=== PATIENT | female | born 1995 | race Caucasian/White ===

== ENCOUNTER 2022-08-11 15:05 | Emergency (ER) | payer OTHER, SELFPAY ==
[2022-08-11 15:21] VITALS: BP 109/67; PULSE 71; RESP 16; TEMP 37.1; O2SAT 100
[2022-08-11 15:23] VITALS: BP 109/67; PULSE 71; RESP 16; TEMP 37.1; O2SAT 100
--- NOTE | 2022-08-11 16:04 | ED.EAR ---
HPI - Ear Problem General Chief complaint: Ear Stated complaint: Left Ear Irritation Time Seen by Provider: 08/11/22 16:04 Source: patient Mode of arrival: ambulatory Limitations: no limitations History of Present Illness HPI Narrative: 27-year-old female presenting for complaint of left ear pain over the last 3 days. She endorses yellow drainage, decreased hearing, and dizziness at times. She endorses she has had this in the past and has not yet been able to establish with the ENT. She currently denies sinus congestion or drainage, cough, fevers or chills. She has taken Tylenol and ibuprofen for symptoms. MD Complaint: ear pain Related Data Home Medications Medication Instructions Recorded Confirmed norethindrone 1 mg-ethinyl 1 tablet PO DAILY 08/11/22 08/11/22 estradiol 20 mcg (21)-iron 75 mg (7) tablet (10/05 (28)) Allergies Allergy/AdvReac Type Severity Reaction Status Date / Time No Known Allergies Allergy Unknown Verified 08/11/22 16:06 Review of Systems Review of Systems: CONSTITUTIONAL: Denies malaise, chills, or fever. EYES: Denies visual changes, redness, or discharge. ENT: Denies rhinorrhea, congestion, sinus pain, and sore throat. Reports ear pain CARDIOVASCULAR: Denies chest pain, palpitations, or edema. RESPIRATORY: Denies cough or dyspnea. GASTROINTESTINAL: Denies abdominal pain, nausea, vomiting, diarrhea SKIN: Denies rash or itching. MUSCULOSKELETAL: Denies myalgia. NEUROLOGIC: Denies headache. All systems reviewed & are unremarkable except as noted in HPI and below PMFSH Comments At time of signature, agree with nursing past medical, surgical, social and family history. There is no relevant family history pertinent to the presenting complaint Exam Narrative: GENERAL: Well-appearing, well-nourished, and in no acute distress. HEAD: Normocephalic EYES: PERRLA, conjunctivae clear ENT: Nares clear. Mucous membranes moist. Right TM pearly zhu with dull light reflex; Approx 50% Left TM visible appears TM red with purulent effusion, tender canal without drainage; left tragal tenderness. Oropharynx not erythematous without lesions. CHEST: Clear to auscultation, breath sounds equal. No wheezing, rhonchi, rales, or stridor. HEART: Regular rate and rhythm. No murmur heard. SKIN: Warm, dry, no rash. NEURO: Alert and oriented x3. Course Course Emergency Course: Patient is aware of diagnosis, understands and agrees to treatment plan. Anticipatory guidance given. Patient agrees to follow-up as directed and is aware of reasons to seek care at the emergency department. Portions of this record may have been created with voice recognition software Level of Care: Express Care Visit Vital Signs Vital signs: Vital Signs Temperature 98.7 F 08/11/22 15:21 Pulse Rate 71 08/11/22 15:21 Respiratory Rate 16 08/11/22 15:21 Blood Pressure 109/67 08/11/22 15:21 Pulse Oximetry 100 08/11/22 15:21 Oxygen Delivery Room Air 08/11/22 15:21 Temperature 98.7 F 08/11/22 15:23 Pulse Rate 71 08/11/22 15:23 Respiratory Rate 16 08/11/22 15:23 Blood Pressure 109/67 08/11/22 15:23 Pulse Oximetry 100 08/11/22 15:23 Oxygen Delivery Room Air 08/11/22 15:23 Reviewed Medical Decision Making MDM Narrative Medical decision making narrative: Treat for OE and AOM given difficulty visualizing TM. Advised supportive measures and signs/symptoms to go to the ER. Patient is appropriate for outpatient treatment and follow-up. Differential Diagnosis Differential Diagnosis: Coronavirus, strep pharyngitis, allergic rhinitis, upper respiratory tract infection, sinusitis, rhinosinusitis, nasopharyngitis, viral pharyngitis, otitis media, otitis externa, eustachian tube dysfunction, foreign body, cerumen impaction. Vital Signs Vital Signs: Vital Signs Temperature 98.7 F 08/11/22 15:21 Pulse Rate 71 08/11/22 15:21 Respiratory Rate 16 08/11/22 15:21 Blood Pressure
== END 2022-08-11 16:13 | disposition home or self-care (01) ==
PROVIDERS: Emergency Provider Nurse Practitioner Family
DX: H60.502 Unspecified acute noninfective otitis externa, left ear (principal)
CPT/HCPCS: 99213; G0463

== ENCOUNTER → 2022-09-04 08:13 | Outpatient (CLI) | payer OTHER, SELFPAY ==
--- NOTE | ~2022-09-04 | US_ITS ---
EXAMINATION: US pelvic complete DATE: 09/04/2022 08:45 INDICATION: Left lower quadrant pain Comparison:Ultrasound dated 07/13/2014 TECHNIQUE: Multiple transabdominal sonographic images of the pelvis performed. FINDINGS: The uterus measures 8 x 3.7 x 4.9 cm. The endometrial complex measures 8.5 mm. The right ovary measures 3 x 1.8 x 2.1 cm and the left ovary measures 2.7 x 2.1 x 2.4 cm. There are small follicles in each ovary. Normal doppler signal in both ovaries. There is no free fluid in the pelvis. There are no abnormal masses seen on either side. IMPRESSION: 1. Unremarkable pelvic ultrasound. Reviewed, dictated and finalized at location A. CENTER ASSOCIATE
== END ==
PROVIDERS: PCP Nurse Practitioner; Visit Provider Nurse Practitioner
DX: R10.2 Pelvic and perineal pain (principal)
CPT/HCPCS: 76856

== ENCOUNTER 2022-11-12 06:36 | Emergency (ER) | payer OTHER, SELFPAY ==
--- NOTE | ~2022-11-12 | CT_ITS ---
EXAMINATION: CT IAC/mastoids BI w con DATE: 11/12/2022 08:23 INDICATION: Left ear pain and swelling. TECHNIQUE: Computed tomography (CT) of the temporal bones was performed with 100 mL Omnipaque 350 int ravenous contrast. Automated exposure control and iterative reconstruction technique were employed. T he dose-length product was 254.34 mGy-cm. COMPARISON: None FINDINGS: RIGHT TEMPORAL BONE: The internal auditory canal, cochlea, vestibule, semicircular canals, vestibular aqueduct, carotid ca nal, jugular bulb are normal. There is extensive material in the tympanic cavity and mastoid air cell s. The ossicles, Prussak space, and scutum are normal. There is material in the external auditory can al, likely cerumen. LEFT TEMPORAL BONE: The internal auditory canal, cochlea, vestibule, vestibular aqueduct, semicircular canals, jugular bu lb, carotid canal are normal. There is extensive material in the tympanic cavity and mastoid air cell s including in Prussak space. The mastoid air cells are small. There are erosions of the ossicles. Ex ternal auditory canal is normal. IMPRESSION: 1. Right otomastoid effusion. 2. Left otomastoid effusion with erosions of the ossicles, consistent with chronic otitis media versu s cholesteatoma. Reviewed, dictated and finalized at location A. HANDISE CLERK IMPRESSION: 1. Right otomastoid effusion. 2. Left otomastoid effusion with erosions of the ossicles, consistent with top collar baster fallon otitis media versus cholesteatoma.
[2022-11-12 06:45] VITALS: BP 119/81; PULSE 115; RESP 16; TEMP 36.8; O2SAT 100
[2022-11-12 06:49] VITALS: BP 105/70; PULSE 92; RESP 16; TEMP 36.8; O2SAT 99
[2022-11-12 07:25] VITALS: BP 100/73; PULSE 83; RESP 18; O2SAT 100
[2022-11-12 07:48] LABS: Basophils Percent Auto 0.7 % (0.2-1.2); Eosinophils Absolute Auto 0.1 K/mm3 (0-0.3); Eosinophils Percent Auto 2.3 % (0-4.4); Hematocrit 35.3 % (37.0-47.0); Hemoglobin 12.2 g/dL (12.0-15.0); Immature Granulocyte Absolute 0.02 K/mm3 (0.00-0.031); Immature Granulocyte Percent A 0.4 % (0-0.5); Lymphocytes Absolute Auto 1.54 K/mm3 (0.9-3.2); Lymphocytes Percent Auto 27.7 % (18.3-44.2); Mean Corpuscular HGB Conc 34.6 g/dl (32-36); Mean Corpuscular Hemoglobin 33.6 pg (26-34); Mean Corpuscular Volume 97.2 fl (80-100); Monocytes Absolute Auto 0.5 K/mm3 (0.1-0.6); Monocytes Percent Auto 8.1 % (2.6-8.5); Neutrophils Absolute Auto 3.4 K/mm3 (1.3-6.7); Neutrophils Percent Auto 60.8 % (45.5-73.1); Platelet Count Result 164 k/mm3 (150-375); Red Blood Count 3.63 M/mm3 (4.2-5.4); Red Cell Distribution Width 12.1 % (11.5-14.5); White Blood Count 5.6 K/mm3 (4.5-10.0)
--- NOTE | 2022-11-12 07:50 | ED.EAR ---
HPI - Ear Problem General Chief complaint: Recheck/Abnormal Lab/Rx Stated complaint: cyst behind ear, ruptured dizziness Time Seen by Provider: 11/12/22 07:07 History of Present Illness HPI Narrative: This is a 27-year-old female, recently seen by primary care doctor for a cyst behind the left ear, who presents to the emergency department complaining of pain and swelling behind the left ear. She states she was seen by her primary physician and started on steroids with improvement of a cyst behind the ear. She states this morning she noted that the cyst drained on its own, but this was associated with increasing pain and swelling behind the left ear. She also complains of mild numbness to the left side of the face. Related Data Home Medications Medication Instructions Recorded Confirmed norethindrone 1 mg-ethinyl 1 tablet PO DAILY 08/11/22 08/11/22 estradiol 20 mcg (21)-iron 75 mg (7) tablet (10/05 (28)) Allergies Allergy/AdvReac Type Severity Reaction Status Date / Time amoxicillin Allergy Swelling Verified 11/12/22 06:54 Review of Systems Review of Systems: CONSTITUTIONAL: Denies fever, chills, or sweats. EYES: Occasional left eye dryness denies visual changes, redness, or discharge. ENT: Left ear pain denies rhinorrhea, congestion, sore throat, or otalgia. CARDIOVASCULAR: Denies chest pain, palpitations, or edema. RESPIRATORY: Denies cough or dyspnea. GASTROINTESTINAL: Denies abdominal pain, nausea, vomiting, or diarrhea. GENITOURINARY: Last menstrual period 1 week ago denies dysuria or hematuria. SKIN: Denies rash or itching. MUSCULOSKELETAL: Denies back pain, joint pain, or myalgia. NEUROLOGIC: Denies headache, numbness, dizziness, or weakness. PSYCHIATRIC: Denies anxiety or depression. [facility] Past Medical History Medical History (Updated 11/12/22 @ 15:32 by Reed Jesus MD) Otitis media Social History Social History (Updated 11/12/22 @ 15:32 by Reed Jesus MD) Smoking status: Never smoker Alcohol intake: never Substance use: never Exam Narrative: GENERAL: Well-developed, well-nourished, and in no acute distress. HEAD: Normocephalic, atraumatic. EYES: PERRLA and EOMI. ENT: Mild erythema and swelling over the left mastoid, tender to palpation, there is a mass just behind the left earlobe, consistent with a cyst. Does not appear to be actively draining but is not distended. Nares clear, no rhinorrhea or epistaxis. Mucous membranes moist. Oropharynx without tonsillar hypertrophy exudate or other lesions. Bilateral TMs pearly zhu nonbulging NECK: Supple. No adenopathy or masses. No carotid bruits or JVD CHEST: Clear to auscultation. No respiratory distress. No wheezes rales or rhonchi HEART: Regular rate and rhythm. No murmur heard. Normal peripheral pulses. ABDOMEN: Soft, nontender, nondistended, normal active bowel sounds. EXTREMITIES: Normal range of motion. No edema. NEURO: No focal deficits. Alert and oriented x3. Cranial nerves II through XII intact. Strength 5/5 in all extremities, sensation intact PSYCH: Normal mood and affect. Course Course Emergency Course: 09:00 - CT not concerning for acute mastoiditis, though does show changes consistent with chronic otitis media versus cholesteatoma. CBC and CMP remarkable only for sodium of 134. test was negative. I discussed these findings with the patient. Will treat with a course of and a short course of steroids. The patient is working to establish a follow-up appointment. Return and emergency precautions including signs/symptoms of deep space infection and neurologic deficit. The patient voiced understanding and is comfortable with the plan. All questions answered to her satisfaction. Vital Signs Vital signs: Vital Signs Temperature 98.3 F 11/12/22 06:45 Pulse Rate 115 H 11/12/22 06:45 Respiratory Rate 16 11/12/22 06:45 Blood Pressure 119/81 11/12/22 06:45 Pulse Oximetry 100 0
[2022-11-12 07:53] LABS: Alanine Aminotransferase 25 U/L (6-35); Albumin Level 4.3 g/dL (3.5-5.1); Alkaline Phosphatase 50 U/L (38-126); Anion Gap 5 mmol/L (8-16); Aspartate Amino Transferase 27 U/L (14-36); Bilirubin,Total 0.6 mg/dL (0.2-1.3); Blood Urea Nitrogen 18 mg/dL (7-17); Calcium 8.9 mg/dL (8.4-10.2); Carbon Dioxide 28 mmol/L (22-30); Chloride 101 mmol/L (98-107); Estimated Glomerular Filt Rate > 60; Glucose 97 mg/dL (65-110); Potassium 3.8 mmol/L (3.4-5.0); Sodium 134 mmol/L (137-145)
[2022-11-12 07:55] LABS: CRP < 0.5 mg/dL (<1.0)
[2022-11-12 08:19] LABS: Erythrocyte Sedimentation Rate 17 mm/hr (0-20)
--- NOTE | 2022-11-12 08:19 | PC.NURSE ---
Pt taken to CT scan
[2022-11-12 10:04] VITALS: BP 100/63; PULSE 79; RESP 18; O2SAT 98
== END 2022-11-12 10:06 | disposition home or self-care (01) ==
PROVIDERS: Emergency Provider Preventive Medicine Aerospace Medicine
DX: H66.92 Otitis media, unspecified, left ear (principal)
CPT/HCPCS: 36415; 70481; 80053; 81025; 85025; 85652; 86140; 99284; Q9967

== ENCOUNTER 2023-07-22 09:22 | Emergency (ER) | payer OTHER, SELFPAY ==
[2023-07-22] VITALS (20 sets, daily range): BP systolic 97–125; BP diastolic 72–83; PULSE 79–103; RESP 10–19; TEMP 36.6; O2SAT 98–100
--- NOTE | ~2023-07-22 | XR_ITS ---
EXAMINATION: XR chest 2V DATE: 07/22/2023 10:16 INDICATION: Chest pressure TECHNIQUE: PA and lateral views of the chest are obtained. COMPARISON: None available FINDINGS: The lungs are free of acute opacities. No pleural effusion or pneumothorax. The cardiomedia stinal silhouette is normal. The visualized bones and soft tissues are unremarkable. IMPRESSION: 1. No acute cardiopulmonary abnormality. Reviewed, dictated and finalized at location B. LAYING MACHINE OPERATOR
--- NOTE | 2023-07-22 09:26 | ECG_ITS ---
Measurements Intervals [place] Rate: 91 P: 66 [place]: 127 QRS: 83 QRSD: 94 T: 8 QT: 362 QTc: 447 Interpretive Statements SINUS RHYTHM BORDERLINE T WAVE ABNORMALITY- INFERIOR LEADS BORDERLINE ECG NO PREVIOUS ECG AVAILABLE FOR COMPARISON Electronically Signed On 07-22-2023 10:05:07 ALLOCATION ANALYST by Micheal Lopez D.O.
[2023-07-22 09:44] LABS: Basophils Percent Auto 0.6 % (0.2-1.2); Eosinophils Percent Auto 0.6 % (0-4.4); Hematocrit 39.8 % (37.0-47.0); Hemoglobin 13.6 g/dL (12.0-15.0); Immature Granulocyte Absolute 0.02 K/mm3 (0.00-0.031); Immature Granulocyte Percent A 0.3 % (0-0.5); Lymphocytes Percent Auto 23.8 % (18.3-44.2); Mean Corpuscular HGB Conc 34.2 g/dl (32-36); Mean Corpuscular Hemoglobin 32.9 pg (26-34); Mean Corpuscular Volume 96.1 fl (80-100); Monocytes Absolute Auto 0.5 K/mm3 (0.1-0.6); Monocytes Percent Auto 6.4 % (2.6-8.5); Neutrophils Absolute Auto 4.9 K/mm3 (1.3-6.7); Neutrophils Percent Auto 68.3 % (45.5-73.1); Platelet Count Result 195 k/mm3 (150-375); Red Blood Count 4.14 M/mm3 (4.2-5.4); Red Cell Distribution Width 12.1 % (11.5-14.5); White Blood Count 7.2 K/mm3 (4.5-10.0)
[2023-07-22 09:54] LABS: Alanine Aminotransferase 16 U/L (6-35); Albumin Level 4.5 g/dL (3.5-5.1); Alkaline Phosphatase 54 U/L (38-126); Anion Gap 6 mmol/L (8-16); Aspartate Amino Transferase 20 U/L (14-36); Blood Urea Nitrogen 10 mg/dL (7-17); Calcium 9.1 mg/dL (8.4-10.2); Carbon Dioxide 25 mmol/L (22-30); Chloride 106 mmol/L (98-107); Estimated CRCL calculation 102 ml/min; Estimated Glomerular Filt Rate > 60; Glucose 93 mg/dL (65-110); Lipase 62 U/L (23-300); Potassium 3.6 mmol/L (3.4-5.0); Sodium 137 mmol/L (137-145)
[2023-07-22 10:04] LABS: Troponin I < 0.012 ng/mL (0.000-0.034)
[2023-07-22 10:11] LABS: Partial Thromboplastin Time 27.5 SECONDS (22.3-36.8)
[2023-07-22 12:46] LABS: Troponin I < 0.012 ng/mL (0.000-0.034)
--- NOTE | 2023-07-22 12:53 | ED.CHESTPAIN ---
HPI - Chest Pain General Chief Complaint: Chest Pain Stated Complaint: intermittent chest pressure Time Seen by Provider: 07/22/23 11:30 History of Present Illness HPI narrative: Patient is a 28-year-old female who presents ER with intermittent chest pressure. Burning. Ongoing for a week. Worse with laying down flat. Was concerned she had reflux or heart issue. Reports her mother at age 34 from an AL. She had a stress test when she was and it was normal. No alleviating factors. Related Data Home Medications Medication Instructions Recorded Confirmed norethindrone 1 mg-ethinyl 1 tablet PO DAILY 08/11/22 08/11/22 estradiol 20 mcg (21)-iron 75 mg (7) tablet (10/05 (28)) Allergies Allergy/AdvReac Type Severity Reaction Status Date / Time amoxicillin Allergy Swelling Verified 07/22/23 11:27 Review of Systems Constitutional: Constitutional: Denies chills, Denies fatigue and Denies fever(s) Cardiovascular: Cardiovascular: Reports chest pain, Denies rapid heart rate and Denies radiating jaw, neck or arm pain Respiratory: Respiratory: Denies cough and Denies dyspnea Gastrointestinal: Gastrointestinal: Denies abdominal pain, Reports heartburn, Denies nausea and Denies vomiting Genitourinary: Genitourinary: Reports no additional female genitourinary complaints PMFSH Past Medical History Medical History (Updated 07/22/23 @ 12:58 by Gordon Haskins MD) Healthy female adult Otitis media Surgical History Surgical History (Updated 07/22/23 @ 12:55 by Gordon Haskins MD) No pertinent past surgical history Social History Social History (Updated 11/12/22 @ 15:32 by Reed Jesus MD) Smoking status: Never smoker Alcohol intake: never Substance use: never Exam Narrative: GENERAL: Well-appearing, well-nourished, and in no acute distress. HEAD: Normocephalic, atraumatic. ENT: Mucous membranes moist. CHEST: Clear to auscultation. No respiratory distress. HEART: Regular rate and rhythm. Normal peripheral pulses. ABDOMEN: Soft, nontender, nondistended. EXTREMITIES: Normal range of motion. No edema. SKIN: Warm, dry, no rash. NEURO: Alert and oriented x3. PSYCH: Normal mood and affect. Course Course Emergency Course: Patient resting comfortably. Informed of results. Discharge home with supportive care. Vital Signs Vital signs: Vital Signs Temperature 97.8 F 07/22/23 09:23 Pulse Rate 99 07/22/23 09:23 Respiratory Rate 16 07/22/23 09:23 Blood Pressure 112/81 07/22/23 09:23 Pulse Oximetry 100 07/22/23 09:23 Oxygen Delivery Room Air 07/22/23 09:23 Temperature 97.8 F 07/22/23 09:23 Pulse Rate 84 07/22/23 12:14 Respiratory Rate 17 07/22/23 12:14 Blood Pressure 106/72 07/22/23 12:14 Pulse Oximetry 98 07/22/23 12:14 Oxygen Delivery Room Air 07/22/23 11:24 MDM - Chest Pain Lab Data 07/22/23 09:32 07/22/23 09:32 Labs: Lab Results 07/22/23 07/22/23 Range/Units 09:32 12:10 WBC 7.2 (4.5-10.0) K/mm3 RBC 4.14 L (4.2-5.4) M/mm3 Hgb 13.6 (12.0-15.0) g/dL Hct 39.8 (37.0-47.0) % MCV 96.1 (80-100) fl MCH 32.9 (26-34) pg MCHC 34.2 (32-36) g/dl RDW 12.1 (11.5-14.5) % Plt Count 195 (150-375) k/mm3 MPV 10.0 (7.4-10.4) fl Immature Gran % (Auto) 0.3 (0-0.5) % Neut % (Auto) 68.3 (45.5-73.1) % Lymph % (Auto) 23.8 (18.3-44.2) % Rooks % (Auto) 6.4 (2.6-8.5) % Eos % (Auto) 0.6 (0-4.4) % Baso % (Auto) 0.6 (0.2-1.2) % Lymph # (Auto) 1.70 (0.9-3.2) K/mm3 Rooks # (Auto) 0.5 (0.1-0.6) K/mm3 Eos # (Auto) 0.0 (0-0.3) K/mm3 Baso # (Auto) 0.0 (0.0-0.1) K/mm3 Abs Immat Gran (auto) 0.02 (0.00-0.031) K/mm3 Absolute Neuts (auto) 4.9 (1.3-6.7) K/mm3 Absolute Nucleated RBC 0.0 (0.0-0.012) K/mm3 Nucleated RBC % 0.0 (0.0-0.2) % PT 14.0 (11.1-14.7) Seconds INR 1.0 APTT 27.5 (22.3-36.8) SECO
== END 2023-07-22 13:11 | disposition home or self-care (01) ==
PROVIDERS: Emergency Provider Emergency Medicine
DX: R07.89 Other chest pain (principal); R94.31 Abnormal electrocardiogram [ECG] [EKG]
CPT/HCPCS: 36415; 71046; 80053; 83690; 84484; 85025; 85610; 85730; 93005; 99284

== ENCOUNTER 2023-08-06 11:20 | Emergency (ER) | payer OTHER, SELFPAY ==
[2023-08-06] VITALS (10 sets, daily range): BP systolic 100–127; BP diastolic 68–75; PULSE 86–114; RESP 14–19; TEMP 36.7–36.8; O2SAT 98–100
--- NOTE | ~2023-08-06 | XR_ITS ---
EXAMINATION: XR chest 2V DATE: 08/06/2023 11:44 INDICATION: Chest pain. TECHNIQUE: Frontal and lateral views of the chest were obtained. COMPARISON: Chest 2 views 07/22/2023 FINDINGS: There is no pneumonia, pleural effusion, or pneumothorax. The heart size is normal. IMPRESSION: 1. No acute cardiopulmonary disease. Reviewed, dictated and finalized at location E. ESS ENVIRONMENTAL TECHNICIAN
--- NOTE | 2023-08-06 11:23 | ECG_ITS ---
Measurements Intervals [place] Rate: 110 P: 63 [place]: 130 QRS: 73 QRSD: 93 T: -10 QT: 326 QTc: 442 Interpretive Statements SINUS TACHYCARDIA MINIMAL Q WAVES- INFERIOR LEADS NONSPECIFIC T-WAVE ABNORMALITY- INFERIOR LEADS BASELINE ARTIFACT- V1 ABNORMAL ECG COMPARED TO ECG 07/22/2023 09:31:03 SINUS TACHYCARDIA NOW PRESENT Electronically Signed On 08-06-2023 13:47:29 ELECTRIC MOTOR MECHANIC by Micheal Lopez D.O.
[2023-08-06 11:33] LABS: Basophils Absolute Auto 0.1 K/mm3 (0.0-0.1); Basophils Percent Auto 0.7 % (0.2-1.2); Eosinophils Absolute Auto 0.2 K/mm3 (0-0.3); Eosinophils Percent Auto 2.4 % (0-4.4); Hematocrit 36.4 % (37.0-47.0); Hemoglobin 12.2 g/dL (12.0-15.0); Immature Granulocyte Absolute 0.01 K/mm3 (0.00-0.031); Immature Granulocyte Percent A 0.1 % (0-0.5); Lymphocytes Absolute Auto 2.26 K/mm3 (0.9-3.2); Lymphocytes Percent Auto 31.8 % (18.3-44.2); Mean Corpuscular HGB Conc 33.5 g/dl (32-36); Mean Corpuscular Hemoglobin 32.9 pg (26-34); Mean Corpuscular Volume 98.1 fl (80-100); Mean Platelet Volume 10.7 fl (7.4-10.4); Monocytes Absolute Auto 0.6 K/mm3 (0.1-0.6); Monocytes Percent Auto 8.6 % (2.6-8.5); Neutrophils Percent Auto 56.4 % (45.5-73.1); Platelet Count Result 189 k/mm3 (150-375); Red Blood Count 3.71 M/mm3 (4.2-5.4); Red Cell Distribution Width 12.1 % (11.5-14.5); White Blood Count 7.1 K/mm3 (4.5-10.0)
[2023-08-06 11:41] LABS: INR 1.1; Prothrombin Time 14.7 Seconds (11.1-14.7)
[2023-08-06 11:42] LABS: Partial Thromboplastin Time 28.3 SECONDS (22.3-36.8)
[2023-08-06 11:45] LABS: Alanine Aminotransferase 15 U/L (6-35); Albumin Level 4.3 g/dL (3.5-5.1); Alkaline Phosphatase 43 U/L (38-126); Anion Gap 7 mmol/L (8-16); Aspartate Amino Transferase 20 U/L (14-36); Bilirubin,Total 0.6 mg/dL (0.2-1.3); Blood Urea Nitrogen 13 mg/dL (7-17); Carbon Dioxide 27 mmol/L (22-30); Chloride 105 mmol/L (98-107); Estimated CRCL calculation 99 ml/min; Estimated Glomerular Filt Rate > 60; Glucose 109 mg/dL (65-110); Lipase 62 U/L (23-300); Potassium 3.9 mmol/L (3.4-5.0); Sodium 139 mmol/L (137-145)
[2023-08-06 11:56] LABS: Troponin I < 0.012 ng/mL (0.000-0.034)
--- NOTE | 2023-08-06 13:02 | ED.CHESTPAIN ---
HPI - Chest Pain General Chief Complaint: Chest Pain Stated Complaint: chest pain Time Seen by Provider: 08/06/23 13:00 Source: patient Mode of arrival: EMS Limitations: no limitations History of Present Illness HPI narrative: This is a 28 year old female who presents with complaint of mid sternal chest pressure. It radiates to her left arm and her back. Pain is 2 out of 10 in severity. It started while she was seated at rest. Aspirin and nitro were given by EMS. She denies any shortness of breath, cough/hemoptysis, or fevers. She is concerned as her mother had a myocardial infarction at age 34. No LE edema, calf pain. Not on control. She states this pain occurs every day but sporadically. She has not noticed a pattern in terms of time of day, relation to foods eaten, etc. She states she was recently seen in the ED for the same 3 weeks ago and was told she might have heartburn. She followed up with her PCP on who prescribed her a medication for 30 days but her insurance didn't cover it so not taking it. She does not follow with a director clinical data. She has tried not eating 3 hours before bed and trying a diet of bland foods. Does not smoke and no personal history of diabetes. Related Data Home Medications Medication Instructions Recorded Confirmed norethindrone 1 mg-ethinyl 1 tablet PO DAILY 08/11/22 08/11/22 estradiol 20 mcg (21)-iron 75 mg (7) tablet (10/05 (28)) Allergies Allergy/AdvReac Type Severity Reaction Status Date / Time amoxicillin Allergy Swelling Verified 07/22/23 11:27 [facility] Past Medical History Medical History (Updated 08/07/23 @ 00:00 by Shyann Huntley) Healthy female adult Otitis media Surgical History Surgical History (Updated 07/22/23 @ 12:55 by Gordon Haskins MD) No pertinent past surgical history Family History Family History (Updated 08/07/23 @ 14:19 by Trinity Chatman MD) Mother Acute myocardial infarction, Onset Age: 34 Other Diabetes mellitus Social History Social History (Updated 11/12/22 @ 15:32 by Reed Jesus MD) Smoking status: Never smoker Alcohol intake: never Substance use: never Exam Narrative: GENERAL: Well-appearing, well-nourished, and in no acute distress. HEAD: Normocephalic, atraumatic. EYES: Grossly normal. No photophobia ENT: Nares clear, no rhinorrhea or epistaxis. NECK: Supple. No asymmetry. CHEST: Clear to auscultation. No respiratory distress. Speaking in full sentences. Clear to auscultation bilaterally. HEART: Tachycardic rate and rhythm. No murmur heard. Normal peripheral pulses. ABDOMEN: Soft, nondistended. EXTREMITIES: Normal range of motion. No edema. SKIN: Warm, dry, no rash. NEURO: No focal deficits. Alert and oriented x3. PSYCH: Mildly anxious but otherwise Normal mood and affect. Course Vital Signs Vital signs: Vital Signs Temperature 98.2 F 08/06/23 11:23 Pulse Rate 102 H 08/06/23 11:23 Respiratory Rate 16 08/06/23 11:23 Blood Pressure 127/75 08/06/23 11:23 Pulse Oximetry 100 08/06/23 11:23 Temperature 98.0 F 08/06/23 16:50 Pulse Rate 90 08/06/23 16:01 Respiratory Rate 17 08/06/23 16:01 Blood Pressure 107/71 08/06/23 16:01 Pulse Oximetry 98 08/06/23 16:01 MDM - Chest Pain MDM Narrative Medical decision making narrative: Patient presents with mid sternal chest pain that radiates to left arm and back. Pain described as 2 out of 10 in severity. Recently seen for similar. Followed up with her PCP who prescribed a GI medication her insurance didn't cover. Not on control and no lower extremity edema but is tachycardic on 2 assessments as well as EKG. For this reason, can not apply PERC and will obtain D-Dimer given low pre-test probability. Patient appears anxious but appropriately so as she states her mother had a myocardial infarction at the age of 34. CXR and EKG normal. Labs, including troponin x2 are without marked abno
[2023-08-06 14:34] LABS: D Dimer 0.31 ug/mL (<0.48)
[2023-08-06 14:36] LABS: Troponin I < 0.012 ng/mL (0.000-0.034)
[2023-08-06 14:51] LABS: Influenza A QL RT-PCR Negative (Negative); Influenza B QL RT-PCR Negative (Negative); SARS-CoV-2 RNA PCR Negative (Negative)
== END 2023-08-06 16:51 | disposition home or self-care (01) ==
PROVIDERS: Emergency Medicine; Emergency Provider Student in an Organized Health Care Education/Training Program; PCP Family Medicine Sports Medicine
DX: R07.89 Other chest pain (principal); R00.0 Tachycardia, unspecified
CPT/HCPCS: 36415; 71046; 80053; 83690; 84484; 85025; 85380; 85610; 85730; 87636; 93005; 99284

== ENCOUNTER 2023-11-24 08:40 | Observation (INO) | payer OTHER, SELFPAY ==
[2023-11-24] VITALS (14 sets, daily range): BP systolic 108–130; BP diastolic 60–81; PULSE 75–97; RESP 11–22; TEMP 36.8–37.1; O2SAT 97–100; BMI 24.2
--- NOTE | ~2023-11-24 | XR_ITS ---
Portable chest x-ray Comparison: 11/24/2023 Clinical History: Pneumothorax Findings: Probable minimal left apical pneumothorax present. Right lung clear. Cardiomediastinal si lhouette is stable. Bones and soft tissues are unremarkable. Impression: Minimal left apical pneumothorax. Reviewed, dictated and finalized at [facility]. Impression: Minimal left apical pneumothorax.
--- NOTE | ~2023-11-24 | XR_ITS ---
EXAMINATION: XR chest 1V portable DATE: 11/24/2023 17:18 INDICATION: Left pneumothorax. TECHNIQUE: A single frontal view of the chest was obtained on 2 radiographs. COMPARISON: Chest 2 views at 9:02 AM FINDINGS: There is no pneumonia or pleural effusion. There is a tiny left apical pneumothorax. The he art size is normal. IMPRESSION: 1. Stable tiny left apical pneumothorax. Reviewed, dictated and finalized at location E.
--- NOTE | ~2023-11-24 | XR_ITS ---
XR chest 2V DATE: 11/24/2023 09:11 INDICATION: Midline chest pain, radiating to left TECHNIQUE: PA and lateral views COMPARISON: 08/06/2023 PA and lateral chest FINDINGS: Very small left apical pneumothorax. The lungs are moderately hyperinflated but clear of infiltrate or consolidation. No pleural effusion or pulmonary vascular congestion or pneumothorax. Normal heart size. No hilar or mediastinal enlargem ent. IMPRESSION: Very small left apical pneumothorax Reviewed, dictated and finalized at location [facility].
--- NOTE | ~2023-11-24 | CT_ITS ---
EXAMINATION: CT diagnostic chest wo con DATE: 11/24/2023 10:47 INDICATION: Left apical pneumothorax TECHNIQUE: Computed tomography (CT) of the chest was performed without intravenous contrast. Automate d exposure control and iterative reconstruction technique were employed. Exam dose: 154.84 mGy-cm to eliza exam DLP. COMPARISON: 11/24/2023 2 view chest FINDINGS: Very small left apical pneumothorax is confirmed. No left apical bullae are appreciated. No pulmonary infiltrate or consolidation or pulmonary mass lesion. No hilar or mediastinal mass lesion or lymphadenopathy. Normal heart size. No thoracic aortic aneurys m. No pericardial or pleural effusion. Included upper abdominal structures appear unremarkable. Included skeletal structures are unremarkable. IMPRESSION: Very small left apical pneumothorax Reviewed, dictated and finalized at [facility]. Reviewed, dictated and finalized at location [facility].
--- NOTE | 2023-11-24 08:47 | ECG_ITS ---
Measurements Intervals [place] Rate: 99 P: 70 [place]: 132 QRS: 82 QRSD: 88 T: 28 QT: 363 QTc: 468 Interpretive Statements SINUS RHYTHM BORDERLINE T WAVE ABNORMALITY- INFERIOR LEADS BASELINE ARTIFACT- AVL BORDERLINE ECG COMPARED TO ECG 08/06/2023 11:25:50 SINUS RHYTHM NOW PRESENT Electronically Signed On 11-24-2023 9:56:42 CDT by Micheal Lopez D.O.
--- NOTE | 2023-11-24 08:58 | ED.CHESTPAIN ---
HPI - Chest Pain General Chief Complaint: Chest Pain Stated Complaint: chest pain Time Seen by Provider: 11/24/23 08:57 Source: patient Mode of arrival: ambulatory Limitations: no limitations History of Present Illness HPI narrative: Zita is a 28-year-old female patient presenting to the ER today with complaints of left-sided chest pain that shooting pain into the left neck and shoulder. Reports she has been seen by cardiology and been ruled out for any acute cardiac process. Denies any associated shortness of breath. Patient denies any fall or injury. Related Data Home Medications Medication Instructions Recorded Confirmed norethindrone 1 mg-ethinyl 1 tablet PO DAILY 08/11/22 08/11/22 estradiol 20 mcg (21)-iron 75 mg (7) tablet (10/05 (28)) Allergies Allergy/AdvReac Type Severity Reaction Status Date / Time amoxicillin Allergy Swelling Verified 07/22/23 11:27 Review of Systems Review of Systems: Pertinent positives per HPI. Patient denies any fever, chills, rash, headache, visual changes, dizziness, cough, runny nose, sore throat, shortness of breath, palpitations, nausea, vomiting, diarrhea, constipation, abdominal pain, or any urinary issues. [facility] Past Medical History Medical History Healthy female adult Otitis media Surgical History Surgical History No pertinent past surgical history Family History Family History Mother Acute myocardial infarction, Onset Age: 34 Other Diabetes mellitus Social History Social History Smoking status: Never smoker Alcohol intake: never Substance use: current Substance use type: marijuana Last use: 11/23/23 Do You Feel Safe in your Home?: Yes Lack of Transportation: No Lack of Food: Never True Current Housing: I Have Housing Concerned About Future Housing: No Difficulty Paying Gas/Electric Bills: No Difficulty Paying for Meds: No Currently Unemployed: No Education: Don't Know Difficulty w/ Childcare or Family Care: No Spiritual care concerns: No Comments At the time of my signature, I reviewed and agree with the nursing past medical, surgical, social, and family history. There is no relevant family history pertinent to the patient complaint. Exam Narrative: General: Well-developed, well nourished, in no apparent distress Head: Normocephalic, atraumatic. Chest wall: Pain to the left chest wall with inspiration, no bruising or swelling noted, tenderness to palpation over the left chest wall, no crepitus palpable Cardio: Regular rate and rhythm, s1 and s2 normal, no murmur appreciated. Resp: Clear to auscultation bilaterally, no rhonchi, rales, wheezing or rubs. Extremities: No deformity, no edema, no cyanosis, capillary refill less than 2 seconds, peripheral pulses palpable and strong. Integumentary: [place], warm, and dry, intact without lesion, no rashes. Course Course Emergency Course: Portions of this record may have been created with voice recognition software. Vital Signs Vital signs: Vital Signs Temperature 36.8 C 11/24/23 08:42 Pulse Rate 97 11/24/23 08:42 Respiratory Rate 22 H 11/24/23 08:42 Blood Pressure 130/81 11/24/23 08:42 Pulse Oximetry 100 11/24/23 08:42 Oxygen Delivery Room Air 11/24/23 08:42 Temperature 36.8 C 11/24/23 08:42 Pulse Rate 89 11/24/23 12:30 Respiratory Rate 11 L 11/24/23 12:30 Blood Pressure 111/73 11/24/23 12:30 Pulse Oximetry 100 11/24/23 12:30 Oxygen Delivery High Flow Nasal Cannula 11/24/23 12:05 Oxygen Flow Rate 6 11/24/23 12:05 Vital signs reviewed MDM - Chest Pain MDM Narrative Medical decision making narrative: At the time of visit patient is resting comfortably on t
[2023-11-24 09:10] LABS: Basophils Percent Auto 0.6 % (0.2-1.2); Eosinophils Absolute Auto 0.2 K/mm3 (0-0.3); Hematocrit 38.3 % (37.0-47.0); Hemoglobin 12.9 g/dL (12.0-15.0); Immature Granulocyte Absolute 0.02 K/mm3 (0.00-0.031); Immature Granulocyte Percent A 0.4 % (0-0.5); Lymphocytes Absolute Auto 1.82 K/mm3 (0.9-3.2); Lymphocytes Percent Auto 36.2 % (18.3-44.2); Mean Corpuscular HGB Conc 33.7 g/dl (32-36); Mean Corpuscular Hemoglobin 32.6 pg (26-34); Mean Corpuscular Volume 96.7 fl (80-100); Mean Platelet Volume 10.2 fl (7.4-10.4); Monocytes Absolute Auto 0.4 K/mm3 (0.1-0.6); Neutrophils Absolute Auto 2.6 K/mm3 (1.3-6.7); Neutrophils Percent Auto 50.8 % (45.5-73.1); Platelet Count Result 187 k/mm3 (150-375); Red Blood Count 3.96 M/mm3 (4.2-5.4); Red Cell Distribution Width 11.9 % (11.5-14.5)
[2023-11-24 09:14] LABS: Alanine Aminotransferase 16 U/L (6-35); Albumin Level 4.4 g/dL (3.5-5.1); Alkaline Phosphatase 57 U/L (38-126); Anion Gap 6 mmol/L (8-16); Aspartate Amino Transferase 22 U/L (14-36); Bilirubin,Total 0.7 mg/dL (0.2-1.3); Blood Urea Nitrogen 10 mg/dL (7-17); Carbon Dioxide 27 mmol/L (22-30); Chloride 105 mmol/L (98-107); Estimated CRCL calculation 119 ml/min; Estimated Glomerular Filt Rate > 60; Glucose 92 mg/dL (65-110); Lipase 70 U/L (23-300); Potassium 3.5 mmol/L (3.4-5.0); Prothrombin Time 14.2 Seconds (11.1-14.7); Sodium 138 mmol/L (137-145)
[2023-11-24 09:15] LABS: Partial Thromboplastin Time 29.7 SECONDS (22.3-36.8)
[2023-11-24 09:24] LABS: Appearance Urine Clear (Clear); Bacteria Urine Rare /hpf; Bilirubin Urine Negative (Negative); Blood Urine Negative (Negative); Color Urine Yellow (Yellow); Glucose Urine UA Negative (Negative); Ketones Urine Negative (Negative); Leukocyte Esterase Ur 1+ LEU/UL (Negative); Nitrate Urine Negative (Negative); Non Pathogenic Casts 0-2; Protein Urine Negative (Negative); RBC Urine 0-2 /hpf (0-2); Squamous Epithelial Cell Urine Occasional /hpf (Few); Urobilinogen Urine 0.2 mg/dL (<2.0); pH Urine 5.5 (5.0-9.0)
[2023-11-24 09:25] LABS: Add Urine Microscopic? YES
[2023-11-24 09:26] LABS: Troponin I < 0.012 ng/mL (0.000-0.034)
[2023-11-24] MEDS: KETOROLAC 30 MG/ML VIAL (*BKC) IV PUSH (09:39)
[2023-11-24 09:55] LABS: Influenza A QL RT-PCR Negative (Negative); Influenza B QL RT-PCR Negative (Negative); SARS-CoV-2 RNA PCR Negative (Negative)
--- NOTE | 2023-11-24 11:51 | ECG_ITS ---
Measurements Intervals [place] Rate: 89 P: 70 [place]: 141 QRS: 77 QRSD: 94 T: 41 QT: 384 QTc: 467 Interpretive Statements SINUS RHYTHM NORMAL ECG COMPARED TO ECG 11/24/2023 08:51:38 NO SIGNIFICANT CHANGES Electronically Signed On 11-24-2023 15:09:52 CDT by Micheal Lopez D.O.
[2023-11-24] MEDS: WATER FOR IRRIGATION, STERILE 500 ML BOTTLE IRRIGATION (12:06)
[2023-11-24 12:27] LABS: Troponin I < 0.012 ng/mL (0.000-0.034)
--- NOTE | 2023-11-24 13:09 | PC.NURSE ---
sterile water for irrigation used for humidity on high flow O2
--- NOTE | 2023-11-24 13:25 | PC.NURSE ---
This patient, Zita Ontiveros, was admitted to [facility] Surg Room 331-02. Patient/family oriented to hospital policies and general routines including ID bracelet, bed and alarms, visiting hours, pain management, procedures, bathroom and other care routines, personal items, smoking policy, room service/diet, and visiting hours. Information on how to activate the Rapid Response Team has been discussed. Patient/Family are encouraged to report perceived risks to care and to ask questions if they do not understand what they are told or what they should do.
[2023-11-24 15:25] LABS: Troponin I < 0.012 ng/mL (0.000-0.034)
--- NOTE | 2023-11-24 16:44 | PM.IMHP ---
H&P: HPI History of Present Illness Date/Time: 11/24/23 16:44 Chief Complaint: Left chest pain and shortness of breath, spontaneous left apical pneumothorax Narrative: patient is a 28-year-old female who presented to the emergency room with a sudden onset of left chest pain as well as some mild shortness of breath. The pain radiated up the side of her neck to the side of her face. Also radiated to her her left shoulder area. Workup in the emergency room revealed a small left apical pneumothorax by CT scan and chest x-ray. She was stable in the emergency room with good saturations above 95%. She never had a prior episode of chest pain like this. Never had a prior spontaneous pneumothorax. She denies smoking. She only rarely smokes some marijuana. States she did lift something heavy and the shortly after that started having her symptoms of chest pain. No history of COPD or asthma. Review of Systems Review of Systems: The remainder of the review of systems to include constitutional, HEENT, cardiovascular, respiratory, GI, , integumentary, musculoskeletal, endocrine, immunologic, hematologic, psychiatric, and neurologic are all negative except for which is mentioned above in the HPI. [facility] Past Medical History Medical History Healthy female adult Otitis media Surgical History Surgical History No pertinent past surgical history Family History Family History (Updated 11/24/23 @ 14:55 by Tanna Arredondo RN) Mother Acute myocardial infarction, Onset Age: 34 Grandparent Liver cancer Other Alpha 1-antitrypsin PiMS phenotype Diabetes mellitus Social History Social History Smoking status: Never smoker Alcohol intake: never Substance use: current Substance use type: marijuana Last use: 11/23/23 Do You Feel Safe in your Home?: Yes Lack of Transportation: No Lack of Food: Never True Current Housing: I Have Housing Concerned About Future Housing: No Difficulty Paying Gas/Electric Bills: No Difficulty Paying for Meds: No Currently Unemployed: No Education: Don't Know Difficulty w/ Childcare or Family Care: No Spiritual care concerns: No Meds Home Medications and Allergies Home Medications Medication Instructions Recorded Confirmed Type No Home Medications 11/24/23 11/24/23 History Allergies Allergy/AdvReac Type Severity Reaction Status Date / Time amoxicillin Allergy Swelling Verified 11/24/23 14:56 Vital Signs Vital Signs - 24 hr 11/24/23 08:42 11/24/23 10:31 11/24/23 10:56 Temperature 36.8 C Pulse Rate 97 79 84 Respiratory Rate 22 H 19 17 Blood Pressure 130/81 108/75 109/78 Pulse Oximetry 100 100 97 Oxygen Delivery Room Air Oxygen Flow Rate 11/24/23 11:01 11/24/23 12:07 11/24/23 12:05 Temperature Pulse Rate 75 94 Respiratory Rate 13 Blood Pressure 111/75 Pulse Oximetry 100 100 Oxygen Delivery High Flow Nasal Cannula Oxygen Flow Rate 6 11/24/23 12:30 11/24/23 11:31 11/24/23 12:15 Temperature Pulse Rate 89 80 Respiratory Rate 11 L 12 Blood Pressure 111/73 116/69 Pulse Oximetry 100 100 100 Oxygen Delivery Oxygen Flow Rate 11/24/23 12:30 11/24/23 13:20 Temperature 37.1 C Pulse Rate 82 94 Respiratory Rate 11 L 16 Blood Pressure 109/60 Pulse Oximetry 100 100 Oxygen Delivery Oxygen Flow Rate Exam Const: General: comfortable and no acute distress HENMT: Ears: TM's normal bilaterally Face/Nose/Sinus: Normal nares present Mouth: Yes moist mucous membranes Eyes: General: appearance normal, both eyes and all related structures Sclera: sclerae normal Pupils: Equal, round and reactive pupils present EOM: EOMs intact bilaterally Neck: Neck: supple and no JVD Chest: Other: No crepitus over t
[2023-11-24] MEDS: ACETAMINOPHEN 500 MG TABLET 1000 MG PO (18:06)
[2023-11-25 04:32] VITALS: BP 95/63; PULSE 82; RESP 20; TEMP 36.4; O2SAT 100
[2023-11-25 08:00] VITALS: PULSE 82; RESP 20; O2SAT 99
[2023-11-25 08:13] VITALS: O2SAT 99
--- NOTE | 2023-11-25 11:52 | PM.DS ---
DS: Admitting Diagnosis Discharge Date 11/25/23 Admitting Diagnosis Spontaneous left pneumothorax DS: Discharge Diagnosis Discharge Diagnosis (1) Pneumothorax on left: Code(s): J93.9 - Pneumothorax, unspecified Status: Acute DS: Summary Hospital Course Reason for hospitalization: This is a 28-year-old female who presented to the emergency room with a sudden onset of left chest pain as well as some mild shortness of breath. Workup in the emergency room revealed a small left apical pneumothorax by CT scan and chest x-ray.?She was admitted in this setting. Hospital Course: She was admitted for surgical evaluation and monitoring. She was placed on 6 liters high flow oxygen therapy. She was comfortable with good oxygen saturations. Her left apical pneumothorax was small, about 5% or less. It was felt she did not need a chest tube when admitted. Serial chest x-rays showed the small left apical pneumothorax to remain stable. She did well and symptoms improved. She only had some mild pain with deep inspiration, but no longer feeling short of breath as of today. Her repeat chest x-ray this morning was stable. She was weaned off of her oxygen with O2 saturations stable prior to discharge. This was her first pneumothorax, therefore she will not need follow-up with thoracic surgery at this point. Discussed with the patient signs and symptoms of a pneumothorax and to return to the ER if they occur. She was discharged today in stable condition. No surgical follow-up needed. We also discussed restrictions prior to discharge. Status at Discharge Functional status at discharge: independent ambulation Overall status at discharge: patient is progressing back to baseline Time Spent with Patient Time attestation: Total time spent providing and/or coordinating discharge services: Time spent: Less than 30 minutes Exam Const: General: comfortable and no acute distress Chest: Other: No crepitus over the left chest or the left neck area. Resp: Effort & Inspection: normal respiratory effort Auscultation: clear to auscultation bilaterally Cardio: Rate: regular rate Rhythm: regular rhythm DS: Data Data Completed and Pending Labs on day of discharge: Labs from last 24 hours 11/24/23 11/24/23 14:35 11:59 Troponin I < 0.012 < 0.012 Imaging Radiologist's impression: ITS Impressions Chest X-Ray 11/24/23 09:15 IMPRESSION: Very small left apical pneumothorax Chest CT 11/24/23 11:23 IMPRESSION: Very small left apical pneumothorax Chest X-Ray 11/24/23 17:22 IMPRESSION: 1. Stable tiny left apical pneumothorax. Chest X-Ray 11/25/23 06:08 Impression: Minimal left apical pneumothorax. Discharge Plan Discharge Attending physician on discharge: Griffin Caicedo Discharging Clinician: Sara Cox Anticipated Discharge Date/Time: 11/25/23 13:00 Patient Disposition: Home, Self-Care Activity: other - see discharge instructions Diet: regular Discharge Instructions: If you develop chest pain or shortness of breath, return to the ER. Avoid flying, scuba diving, or using a wind instrument for at least 2-3 weeks. No heavy lifting more than 5-10 lbs x 2 weeks. Patient Instructions: Antibiotic Form, Spontaneous Pneumothorax (DC) Stand Alone Forms: General Discharge Information Follow-up/Referrals: Jean-Pierre Villanueva MD [Primary Care Provider] - Keep Reg. Scheduled Appt. Discharge Medications: No Action No Home Medications Date of admission: 11/24/23 12:24 Primary Care Provider: Jean-Pierre Villanueva Admitting Provider: Griffin Caicedo Attending physician on admission: Griffin Caicedo Condition: Stable Quality If No VTE Prophylaxis Answer both mechanical and pharmacologic: Reason no pharmacologic proph: low risk/not indicated
== END 2023-11-25 14:00 | disposition home or self-care (01) ==
LOC: ANHED 09:33 → ANH3MEDSUR 13:03
PROVIDERS: Emergency Medicine; Admitting Provider Surgery; Emergency Provider Nurse Practitioner Family; PCP Family Medicine Sports Medicine; Visit Provider Surgery
DX: J93.83 Other pneumothorax (principal); F12.90 Cannabis use, unspecified, uncomplicated; Z20.822 Contact with and (suspected) exposure to COVID-19; Z82.49 Family history of ischemic heart disease and other diseases of the circulatory system; Z80.0 Family history of malignant neoplasm of digestive organs
CPT/HCPCS: 36415; 71045; 71046; 71250; 80053; 81001; 81025; 83690; 84484; 85025; 85610; 85730; 87077; 87086; 87088; 87181; 87636; 93005; 96374; 99285; A9270; G0378; J1885

== ENCOUNTER 2023-11-27 09:50 | Emergency (ER) | payer OTHER, SELFPAY ==
[2023-11-27 09:58] VITALS: BP 117/70; PULSE 92; RESP 16; TEMP 36.8; O2SAT 100
--- NOTE | 2023-11-27 10:09 | ED.GENADULT ---
HPI - General Adult General Chief complaint: Recheck/Abnormal Lab/Rx Stated complaint: sent in by dr Cortes Seen by Provider: 11/27/23 09:52 History of Present Illness HPI narrative: patient is a 28-year-old female who presents ER for unknown abnormal lab work. Patient was recently admitted for an apical pneumothorax on left side. She has been doing well. Chart review shows patient has a urine culture that grew out MRSA. She reports no urinary frequency urgency or dysuria at this time. No pelvic pain. Related Data Allergies Allergy/AdvReac Type Severity Reaction Status Date / Time amoxicillin Allergy Swelling Verified 11/27/23 10:11 cefodizime Allergy Hives Verified 11/27/23 10:12 doxycycline Allergy Hives Verified 11/27/23 10:13 Review of Systems Constitutional: Constitutional: Reports no additional constitutional complaints Cardiovascular: Cardiovascular: Reports no additional cardiovascular complaints Respiratory: Respiratory: Reports no additional respiratory complaints Genitourinary: Genitourinary: Reports no additional female genitourinary complaints PMFSH Past Medical History Medical History Healthy female adult Otitis media Surgical History Surgical History No pertinent past surgical history Family History Family History (Updated 11/24/23 @ 14:55 by Tanna Arredondo RN) Mother Acute myocardial infarction, Onset Age: 34 Grandparent Liver cancer Other Alpha 1-antitrypsin PiMS phenotype Diabetes mellitus Social History Social History Smoking status: Never smoker Alcohol intake: never Substance use: current Substance use type: marijuana Last use: 11/23/23 Do You Feel Safe in your Home?: Yes Lack of Transportation: No Lack of Food: Never True Current Housing: I Have Housing Concerned About Future Housing: No Difficulty Paying Gas/Electric Bills: No Difficulty Paying for Meds: No Currently Unemployed: No Education: Don't Know Difficulty w/ Childcare or Family Care: No Spiritual care concerns: No Exam Narrative: GENERAL: Well-appearing, well-nourished, and in no acute distress. HEAD: Normocephalic, atraumatic. ENT: Mucous membranes moist. CHEST: Clear to auscultation. No respiratory distress. HEART: Regular rate and rhythm. Normal peripheral pulses. EXTREMITIES: Normal range of motion. No edema. NEURO:Alert and oriented x3. PSYCH: Normal mood and affect. Course Course Emergency Course: Discharge with antibiotic. Patient has no respiratory complaints. Vital Signs Vital signs: Vital Signs Temperature 98.3 F 11/27/23 09:58 Pulse Rate 92 11/27/23 09:58 Respiratory Rate 16 11/27/23 09:58 Blood Pressure 117/70 11/27/23 09:58 Pulse Oximetry 100 11/27/23 09:58 Oxygen Delivery Room Air 11/27/23 09:58 Temperature 98.3 F 11/27/23 09:58 Pulse Rate 92 11/27/23 09:58 Respiratory Rate 16 11/27/23 09:58 Blood Pressure 117/70 11/27/23 09:58 Pulse Oximetry 100 11/27/23 09:58 Oxygen Delivery Room Air 11/27/23 09:58 Medical Decision Making Vital Signs Vital Signs: Vital Signs Temperature 98.3 F 11/27/23 09:58 Pulse Rate 92 11/27/23 09:58 Respiratory Rate 16 11/27/23 09:58 Blood Pressure 117/70 11/27/23 09:58 Pulse Oximetry 100 11/27/23 09:58 Oxygen Delivery Room Air 11/27/23 09:58 Temperature 98.3 F 11/27/23 09:58 Pulse Rate 92 11/27/23 09:58 Respiratory Rate 16 11/27/23 09:58 Blood Pressure 117/70 11/27/23 09:58 Pulse Oximetry 100 11/27/23 09:58 Oxygen Delivery Room Air 11/27/23 09:58 Discharge Plan Discharge Clinical Impression: UTI (urinary tract infection) Patient Disposition: Home, Self-Care Condition: Stable Instructions: Antibiotic Form, Urinary
--- NOTE | 2023-11-27 10:13 | PC.NURSE ---
RN spoke with Dr. Best who notified pt to come to ER. Dr. Best stated he sent pt to ER because he receive urine culture result positive for MRSA. Dr. Haskins informed
== END 2023-11-27 10:24 | disposition home or self-care (01) ==
PROVIDERS: Emergency Provider Emergency Medicine; PCP Nurse Practitioner
DX: N39.0 Urinary tract infection, site not specified (principal); B95.62 Methicillin resistant Staphylococcus aureus infection as the cause of diseases classified elsewhere
CPT/HCPCS: 99283